=== PATIENT | female | born 1980 ===

== ENCOUNTER 2017-08-21 12:32 | Emergency (ER) | payer MEDICAID ==
[2017-08-21 14:05] LABS: RBC URINE < 1 /hpf (0-3); URINE BACTERIA OCC (<OCC); URINE BILIRUBIN NEGATIVE (NEGATIVE); URINE BLOOD NEGATIVE (NEGATIVE); URINE CALCIUM OXALATE CRYSTALS OCC /hpf (<OCC); URINE COLOR Yellow (YELLOW); URINE GLUCOSE (UA) NORMAL (Normal); URINE KETONE NEGATIVE (NEGATIVE); URINE LEUKOCYTE ESTERASE NEG Leu/uL (Negative); URINE PROTEIN NEGATIVE (NEGATIVE); URINE UROBILINOGEN NORMAL mg/dL (0.2-1.0); WBC URINE 3 /hpf (0-5)
--- NOTE | 2017-08-21 14:30 | OBHP ---
Datetime: 08/21/2017 13:30 IP Adm Impression: No Active Labor IP Chief Complaint Other: right side pain Admit Comment, IP Provider: 37 year old female at 21 weeks presents to the [facility] for right side flank pain. She states the pain started on Wednesday and has become more consistent today. She states the pain comes and goes throughout the day and it does not radiate anywhere. She states t he pain is currently a 8/10 and at its worse it is a 10/10. Tylenol makes it better bringing the hemalatha n down to a 5/10. She states she only has been taking 250mg of Tylenol x2 this week because she does n't want it to hurt the baby. She states laying down makes the pain better. Long periods of standin g makes the pain worse causing radiation of pain down her left leg causing numbness. Patient states s he does feel movement. She denies fever, dysuria, hematuria, vomiting, vaginal bleeding, vagin al discharge or vaginal odor. She states she does feel nauseous in the morning but that has been nor mal for her. She denies recent use of antibiotics or recent urinary tract infections. Denies sexual ly transmitted diseases. OBGYN: [facility] History: Previous obgyn visit 08/13; Next appointment 09/03 [facility] 01/01/18 by US which was done 07/07/17 at 14 weeks 4 days 2010 ([facility]) due to distress: baby girl 10 1/2 lbs 1998 ([place]) vaginal delivery baby girl 10 1/2lbs 1997 ([place]) vaginal delivery baby boy 7lbs LMP: 03/26/17; Regular menstrual cycle lasting for about 5 days Age of Menarche: 14 years of age Medical History: Denies Surgical History: 2010 Family History: Mom passed at the age of 46 due to stroke; Father passed at the age of 54 due to " allergy" Medications: Allergies: NKDA Family History: Lives in an apartment with and 3 children. for one year and they h ave been together for 20 years. 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 Denies alchohol use, lizbeth es smoking and denies illicit drug use. A/P: 37 year old female [id number] at 21 weeks presents to the [facility] for right side flank pain. FHR appropriate for gestational age. 1.) R/O UTI - afebrile - U/A: negative 2.) Musculoskeletal Pain - Can take 500mg of Tylenol every 6 hours as needed for pain Case discussed with Dr. Rian Fontaine PGY-1 Attending Attestation: Patient seen and evaluated by me with Resident, I agree with the above as documented. Plan: as above. Patient is clinically stable. - keep all scheduled appointments Pelvic Type - PN: Not Done Extremities - PN: Normal Abdomen - PN: Normal Back - PN: Normal Breast - PN: Not Done Lungs - PN: Normal Heart - PN: Normal Neurologic - PN: Not Done HEENT - PN: Normal General - PN: Normal Comments, ACOG Physical Exam: Patient laying comfortable in bed Back: Negative for CVA tenderness, Negative for muscular tenderness on palpation. Abdomen: Gravid, soft, nontender, fundal height slightly above the umbilicus, s/p scar h ealed. Per nurse the FHR auscultated at 148bpm. Lower Extremities: no pedal swelling seen, no calf tenderness All other systems reviewed and are negative. Gestation - Est Wks by US: 21.0 Vital Signs Provider: Reviewed; Within Normal Limits IP Chief Complaint: Other Genitourinary Exam: Normal DTRs - PN: Not Done
[2017-08-21 18:49] VITALS: BP 114/59; PULSE 79; RESP 18; TEMP 98.8; O2SAT 99
== END 2017-08-21 14:47 | disposition home or self-care (01) ==
LOC: C.EROB 12:32
DX: O26.892 Other specified pregnancy related conditions, second trimester (principal); R10.9 Unspecified abdominal pain; Z3A.21 21 weeks gestation of pregnancy